=== PATIENT | female | born 1975 | race Asian ===

== ENCOUNTER 2017-05-05 00:05 | Inpatient (IN) | payer SELFPAY ==
[~2017-05-05] VITALS: Ht 163 cm; Wt 69.9 kg
[2017-05-05] MEDS ORDERED: CITRIC ACID/SODIUM CITRATE 30 ML UDC PO SCH ×2 (00:35→05:40)
[2017-05-05] MEDS ORDERED: METOCLOPRAMIDE 10 MG/2 ML INJ VIAL IVP SCH (00:35)
[2017-05-05 00:55] LABS: BASOPHILS # (AUTO) 0.2 K/uL (0.00-0.22); EOSINOPHILS # (AUTO) 0.1 K/uL (0-0.4); LYMPHOCYTES # (AUTO) 1.5 K/uL (2.5-16.5); LYMPHOCYTES % (AUTO) 19.6 % (20.5-51.1); MEAN CORPUSCULAR HEMOGLOBIN 31 pg (27-31); MEAN CORPUSCULAR HGB CONC 33 g/dL (33-37); MEAN CORPUSCULAR VOLUME 92 fL (80-94); MONOCYTES # (AUTO) 0.6 K/uL (0.8-1.0); MONOCYTES % (AUTO) 7.8 % (1.7-9.3); NEUTROPHILS # (AUTO) 5.2 K/uL (1.8-7.7); NEUTROPHILS % (AUTO) 69.6 % (42.2-75.2); PLATELET COUNT (AUTO) 154 K/uL (140-450); RED BLOOD CELL COUNT(AUTO) 4.58 MIL/uL (4.20-5.40); RED CELL DISTRIBUTION WIDTH 14.2 % (11.6-13.7); WHITE BLOOD COUNT (AUTO) 7.6 K/uL (4.8-10.8)
[2017-05-05] MEDS: LACTATED RINGERS 1,000 ML IV SCH ×2 (01:38→05:39)
[2017-05-05 01:43] LABS: ALBUMIN 2.8 g/dL (3.4-5.0); ANION GAP 13.5 (8-16); CREATININE 0.7 mg/dL (0.6-1.3); POTASSIUM 3.5 mmol/L (3.5-5.1); TOTAL BILIRUBIN 0.4 mg/dL (0.0-1.0)
[2017-05-05 01:50] VITALS: BP 108/68
[2017-05-05 02:06] LABS: APPEARANCE,URINE CLEAR (CLEAR); BILIRUBIN,URINE NEGATIVE (NEGATIVE); BLOOD, URINE NEGATIVE (NEGATIVE); COLOR,URINE YELLOW (YELLOW); LEUKOCYTE ESTERASE ,URINE NEGATIVE (NEGATIVE); NITRITE, URINE NEGATIVE (NEGATIVE); UGLUCOSE NEGATIVE (NEGATIVE)
[2017-05-05] MEDS ORDERED: PREN-546 PO (02:17)
[2017-05-05] MEDS ORDERED: CITRIC ACID/SODIUM CITRATE 30 ML UDC ONE (05:32)
[2017-05-05] MEDS ORDERED: ceFAZolin 1,000 MG VIAL ONE (05:32)
[2017-05-05] MEDS ORDERED: ePHEDrine 50 MG/ML VIAL IV ONE (05:54)
[2017-05-05] MEDS ORDERED: OXYTOCIN 10 UNITS/ML VIAL IV ONE (05:54)
[2017-05-05] MEDS ORDERED: ONDANSETRON 4 MG/2 ML VIAL IVP ONE (05:54)
[2017-05-05] MEDS ORDERED: BUPIVACAINE-MPF 0.75% 10 ML VIAL INJ ONE (05:54)
[2017-05-05] MEDS ORDERED: TRIAMCINOLONE 10 MG/ML 5ML VIAL ONE (06:00)
[2017-05-05] MEDS ORDERED: TRIMETHOBENZAMIDE 200 MG/2 ML SYR IM PRN (06:00)
[2017-05-05] MEDS ORDERED: METHYLERGONOVINE 0.2 MG/ML AMP ONE (06:00)
[2017-05-05] MEDS ORDERED: SIMETHICONE 80 MG TAB.CHEW PO PRN ×2 (06:00→16:15)
[2017-05-05] MEDS ORDERED: METHYLERGONOVINE 0.2 MG/ML AMP IM PRN (06:00)
[2017-05-05] MEDS ORDERED: TEMAZEPAM 15 MG CAP PO PRN (06:00)
[2017-05-05] MEDS ORDERED: MEASLES, MUMPS, AND RUBELLA 1 VIAL SQVAC PRN (06:00)
[2017-05-05] MEDS ORDERED: IBUPROFEN 800 MG TAB PO PRN ×2 (06:00→16:15)
[2017-05-05] MEDS ORDERED: oxyCODONE/APAP 5/325 MG 1 TAB TAB PO PRN (06:00)
[2017-05-05] MEDS ORDERED: OXYTOCIN 10 UNITS/ML VIAL ONE ×3 (06:00→23:01)
[2017-05-05] MEDS ORDERED: MORPHINE PRES FREE 10 MG/10 ML AMP IV ONE (06:09)
[2017-05-05] MEDS ORDERED: fentaNYL 0.05 MG/ML VIAL ONE (06:09)
[2017-05-05] MEDS ORDERED: NALOXONE 0.4 MG/ML VIAL IVP PRN ×3 (06:25)
[2017-05-05] MEDS ORDERED: KETOROLAC 60 MG/2 ML VIAL IM PRN (06:25)
[2017-05-05] MEDS ORDERED: HYDROmorphone 1 MG/ML AMP IVP PRN (06:25)
[2017-05-05] MEDS ORDERED: NALBUPHINE 10 MG/ML AMP IVP PRN (06:25)
[2017-05-05] MEDS ORDERED: diphenhydrAMINE 50 MG/ML VIAL IVP PRN (06:25)
[2017-05-05] MEDS ORDERED: ONDANSETRON 4 MG/2 ML VIAL IVP PRN ×2 (06:25)
[2017-05-05] MEDS ORDERED: ceFAZolin 1,000 MG VIAL IVP ONE (06:44)
[2017-05-05] MEDS ORDERED: OXYTOCIN 20 UNITS/LR PREMIX 1,000 ML IV ONE (07:06)
[2017-05-05] MEDS ORDERED: diphenhydrAMINE 50 MG/ML VIAL ONE (07:21)
--- NOTE | 2017-05-05 09:56 | NUR ---
PATIENT HAS BEEN SCREENED AND CATEGORIZED LOW NUTRITION RISK. PATIENT WILL BE SEEN WITHIN 7 DAYS OF ADMISSION. 05/11/[address]
[2017-05-05 09:59] LABS: RAPID PLASMA REAGIN NON-REACTIVE (Non Reactiv)
[2017-05-05] MEDS: OXYTOCIN 20 UNITS in LACTATED RINGERS 1,000 ML IV SCH ×2 (14:55→23:08)
[2017-05-05] MEDS ORDERED: INFLUENZA VIRUS VACCINE QUAD 0.5 ML SYR IMVAC SCH (16:15)
[2017-05-05] MEDS ORDERED: SODIUM PHOSPHATE 118 ML ENEM RC SCH (16:15)
[2017-05-05] MEDS: DOCUSATE SOD/SENNA 50/8.6 MG 1 TAB PO SCH (21:00)
[2017-05-06] MEDS ORDERED: IBUPROFEN 800 MG TAB PO PRN (01:00)
[2017-05-06 05:21] LABS: BASOPHILS # (AUTO) 0.1 K/uL (0.00-0.22); BASOPHILS % (AUTO) 0.8 % (0.0-2.0); EOSINOPHILS # (AUTO) 0.1 K/uL (0-0.4); EOSINOPHILS % (AUTO) 0.7 % (0.0-4.0); HEMATOCRIT 36.1 % (36-48); HEMOGLOBIN 12.4 g/dL (12.0-16.0); LYMPHOCYTES # (AUTO) 2.1 K/uL (2.5-16.5); LYMPHOCYTES % (AUTO) 16.4 % (20.5-51.1); MEAN CORPUSCULAR HEMOGLOBIN 32 pg (27-31); MEAN CORPUSCULAR HGB CONC 34 g/dL (33-37); MEAN CORPUSCULAR VOLUME 92 fL (80-94); MONOCYTES # (AUTO) 0.8 K/uL (0.8-1.0); MONOCYTES % (AUTO) 6.6 % (1.7-9.3); NEUTROPHILS # (AUTO) 9.7 K/uL (1.8-7.7); NEUTROPHILS % (AUTO) 75.5 % (42.2-75.2); PLATELET COUNT (AUTO) 138 K/uL (140-450); RED BLOOD CELL COUNT(AUTO) 3.93 MIL/uL (4.20-5.40); RED CELL DISTRIBUTION WIDTH 13.9 % (11.6-13.7); WHITE BLOOD COUNT (AUTO) 12.8 K/uL (4.8-10.8)
[2017-05-06] MEDS: DOCUSATE SOD/SENNA 50/8.6 MG 1 TAB PO SCH (21:00)
[2017-05-06] MEDS: HYDROcodone/APAP 5/325 MG 1 TAB TAB PO PRN (22:39)
[2017-05-07] MEDS: HYDROcodone/APAP 5/325 MG 1 TAB TAB PO PRN ×2 (02:53→09:10)
[2017-05-07] MEDS: DOCUSATE SOD/SENNA 50/8.6 MG 1 TAB PO SCH (21:00)
[2017-05-08] MEDS: HYDROcodone/APAP 5/325 MG 1 TAB TAB PO PRN (08:40)
== END 2017-05-08 11:55 | disposition home or self-care (01) | DRG 766 ==
LOC: MFCC 00:05
PROVIDERS: ADMIT Obstetrics & Gynecology; ATTEND Obstetrics & Gynecology
PROC: 10D00Z1 Extraction of Products of Conception, Low, Open Approach (ICD-10-PCS; principal; 2017-05-05 06:00)
DX: O34.211 Maternal care for low transverse scar from previous cesarean delivery (principal); Z37.0 Single live birth; Z3A.39 39 weeks gestation of pregnancy
CPT/HCPCS: 36415; 80053; 81003; 85025; 86592; 86886; 86900; 86901; 90658; 90707; 90715; J0690; J1200; J2210; J2270; J2405; J2590; J3010; J3301; J3490; J7060; J7120